=== PATIENT | male | born 1955 | race Caucasian/White ===

== ENCOUNTER → 2017-06-15 | Day surgery (SDC) | payer MEDICARE ==
[~2017-06-15] MED LIST: CARB200T PO; HYDROmorphone 2 MG/ML VIAL IV PRN; IV RINGERS,LACTATED 1000ML 1,000 ML IV SCH; LIDOCAINE 1% PF 2 ML VIAL. ID PRN; MORPHINE SULFATE 2 MG/ML DISP.SYRIN. IV PRN; ONDANSETRON PF 4 MG/2 ML VIAL. IV PRN; PROCHLORPERAZINE 10 MG/2 ML VIAL. IV PRN; PROPOFOL 20 ML IV ONE; fentaNYL PF VIAL 100 MCG/2 ML VIAL IV PRN
[2017-06-15 10:30] VITALS: BP 124/72
--- NOTE | 2017-06-16 13:55 | PATHOLOGY ---
PATHOLOGY REPORT * * * * * * * * FINAL DIAGNOSIS: Colorectal biopsy, rectal polyp: - Hyperplastic polyp. COMMENT: There are no adenomatous changes or evidence of malignancy. (JPM:mm; 06/16/2017) REPORT ELECTRONICALLY SIGNED BY: Vidal Awad M.D. DATE/TIME: 06/16/2017 13:46 * * * * * * * * GROSS PATHOLOGY: Received in formalin labeled "Angie Deleon, rectal polyp," are two segments of sood soft tissue, each measuring 0.2 cm in maximum dimension. The specimen is submitted entirely in cassette A1. (JPM; 06/15/17) INITIAL CPT CODE(S): A; 87676 Professional services performed [place] [address] Technical services performed by [facility] at [address] [place] [address]. EARL Martinez fax: SPECIMEN(S) RECEIVED: A.Rectal polyp CLINICAL HISTORY: Screening PATIENT: ANGIE DELEON /AGE: 401/12/1955 (Age: 62) PATIENT #: [id number] ALT CASE #: SPECIMEN COLLECTION DATE: 06/15/2017 SPECIMEN RECEIVED DATE: 06/15/2017 [facility] - [address] [place] [address] - PHONE: [phone] * * * END OF REPORT * * *
== END | disposition home or self-care (01) ==
LOC: ENDOS 08:34
PROVIDERS: ATTEND Internal Medicine Gastroenterology
DX: Z12.11 Encounter for screening for malignant neoplasm of colon (principal); K62.1 Rectal polyp; K64.0 First degree hemorrhoids; F17.200 Nicotine dependence, unspecified, uncomplicated; Z72.89 Other problems related to lifestyle; Z86.69 Personal history of other diseases of the nervous system and sense organs
CPT/HCPCS: 45380; 88305; J2704

== ENCOUNTER → 2018-06-28 | Day surgery (SDC) | payer MEDICARE ==
[~2018-06-28] MED LIST changes: +GLYCOPYRROLATE 1 MG/5 ML VIAL. ONE; -MORPHINE SULFATE 2 MG/ML DISP.SYRIN. IV PRN; +MORPHINE SULFATE 2 MG/ML VIAL. IV PRN; -PROPOFOL 20 ML IV ONE; +PROPOFOL 40 ML IV ONE; +ePHEDrine PF IN SALINE 50 MG/5 ML DISP.SYRIN IV ONE
--- NOTE | 2018-06-28 09:42 | PREOP HP ---
DATE OF SERVICE: 06/28/2018 DATE OF PROCEDURE: 06/28/2018 REQUESTING PHYSICIAN: Reyes Larson. REASON FOR PROCEDURE: Colorectal cancer screening. HISTORY OF PRESENT ILLNESS: This is a 62-year-old male who presents for colorectal cancer screening. Family history is negative for colorectal cancer. He admits to about one bowel movement a day. ALLERGIES: No known drug allergies. PAST MEDICAL HISTORY: Seizures with epilepsy for which he takes Tegretol. SOCIAL HISTORY: He drinks less than 7 alcoholic beverages a week. He is an everyday smoker and denies IV drug abuse. MEDICATIONS: Tegretol. FAMILY MEDICAL HISTORY: Negative for colorectal cancer. REVIEW OF SYSTEMS: A 13-point review of systems was done and is positive as per HPI and otherwise negative. PHYSICAL EXAMINATION: VITAL SIGNS: He is afebrile and vital signs are stable. GENERAL: He is a thin male, in no apparent distress. HEENT: Oropharynx clear. CARDIOVASCULAR: S1, S2. LUNGS: Clear. ABDOMEN: Normoactive bowel sounds, soft, nontender, nondistended. EXTREMITIES: No edema. NEUROLOGIC: Awake, oriented x 3. ASSESSMENT AND PLAN: Colorectal cancer screening. The risks and benefits of the procedure including bleeding, perforation, non-diagnosis and sedation were explained and he agreed to proceed. Thank you for allowing me to participate in the care of this patient. RODO CHIN MD DR: DANIELLE/hector JOB#: [id number] / [id number]
[2018-06-28 09:53] VITALS: BP 110/72
--- NOTE | 2018-07-03 14:08 | PATHOLOGY ---
[facility] Accession Number: [id number] . 01 Material submitted: . SIGMOID COLON POLYP . 01 Clinical history: . Pre-OP DX: Screening Post-OP DX: Polyps . 02 Diagnosis: Colon biopsies, sigmoid colon polyps: - Hyperplastic polyps. (JPM:shelia; 06/29/2018) QMS/07/03/2018 . 02 Comment: There are no adenomatous changes or evidence of malignancy. . 02 Electronically signed: . Vidal Awad MD, Pathologist NPI- [id number] . 01 Gross description: . Received in formalin labeled "Jamar Varghese, sigmoid colon polyp BX," are 3 segments of sood soft tissue measuring 0.9 x 0.9 x 0.3 cm in aggregate dimensions and ranging from 0.2 to 0.3 cm in maximum dimension. The specimen is submitted entirely in cassette A1. (TSD; 06/28/2018) TOB/TOB . 02 Pathologist provided ICD-10: K63.5 . 02 CPT . 193625 Specimen Comment: A courtesy copy of this report has been sent to Specimen Comment: [phone], . Specimen Comment: Report sent to / DR CHIN Performed at: 01 [facility] [address], [place], [place] [id number] MD Stephane Carter MD Phone: [phone] Performed at: 02 [facility] [address] [place], [place] [id number] MD Vidal Awad MD Phone: [phone]
== END | disposition home or self-care (01) ==
LOC: ENDOS 07:51
PROVIDERS: ATTEND Internal Medicine Gastroenterology
DX: Z12.11 Encounter for screening for malignant neoplasm of colon (principal); K63.5 Polyp of colon; K64.0 First degree hemorrhoids; G40.909 Epilepsy, unspecified, not intractable, without status epilepticus; Z79.899 Other long term (current) drug therapy; Z72.89 Other problems related to lifestyle; F17.210 Nicotine dependence, cigarettes, uncomplicated; Z82.49 Family history of ischemic heart disease and other diseases of the circulatory system
CPT/HCPCS: 45380; 88305; J2704; J3490